=== PATIENT | female | born 2000 | race Caucasian/White ===

== ENCOUNTER 2023-03-02 12:54 | Emergency (ER) | payer BC ==
[~2023-03-02] VITALS: Ht 167.6 cm; Wt 57.1 kg
[2023-03-02] MEDS ORDERED: DILAUDID2 MG PO (15:10)
[2023-03-02] MEDS ORDERED: ONDANSETRON ODT4 MG PO (15:10)
[2023-03-02] MEDS ORDERED: IMODIUM A-D2 M2 PO (15:10)
[2023-03-02 15:18] VITALS: BP 118/74
== END 2023-03-02 15:19 | disposition home or self-care (01) ==
LOC: ED 12:54
DX: K52.9 Noninfective gastroenteritis and colitis, unspecified (principal); E87.6 Hypokalemia; R74.01 Elevation of levels of liver transaminase levels
CPT/HCPCS: 36415; 74177; 80053; 81003; 83690; 83735; 84703; 85025; 96375; 99284-25; J1170; J2405; J7030; Q9967